=== PATIENT | female | born 2000 | race Two or more races ===

== ENCOUNTER 2024-12-25 22:29 | Emergency (ER) | payer MEDICAID ==
[~2024-12-25] VITALS: Ht 165.1 cm; Wt 91.4 kg
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
[2024-12-26] MEDS ORDERED: CYCL-837 PO (00:38)
[2024-12-26] MEDS ORDERED: ACET500T58 PO (00:38)
[2024-12-26 00:52] LABS: Hematocrit 41.5 % (36.0-46.0); Hemoglobin 14.3 g/dL (12.2-16.2); Mean Corpuscular Hemoglobin 30.5 pg (28.0-32.0); Mean Corpuscular Volume 88.2 fL (80.0-100.0); Nucleated Red Blood Cells % 0.1 %
[2024-12-26] MEDS: ONDANSETRON ODT 4 MG TAB PO ONE (00:52)
[2024-12-26] MEDS: ACETAMINOPHEN/CODEINE#3 (300/30mg) TAB PO ONE (00:52)
[2024-12-26] MEDS: IOHEXOL 300 MG/ML 100ML BOTTLE IJ ONE (00:52)
--- NOTE | 2024-12-26 01:13 | DVH ---
MEDICAL RECORDS NUMBER: [id number] PROCEDURE: XY SPINE THORACIC 2VIEW Date: 12/26/2024 12:27 AM HISTORY: thoracic back pain COMPARISON: None FINDINGS: Alignment is maintained. Anterior vertebral body heights are maintained. No fracture dislocation or other abnormality is seen. IMPRESSION: 1. No acute process is seen. Note: Nondisplaced or minimally displaced fractures may be present but not evident. If clinical concern persists, CT of the spine is recommended as a more sensitive evaluation for fracture.
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
--- NOTE | 2024-12-26 01:15 | DVH ---
MEDICAL RECORDS NUMBER: [id number] PROCEDURE: CT CERVICAL WITHOUT CONTRAST Date: 12/26/2024 12:23 AM HISTORY: neck pain Contrast: None COMPARISON: None RADIATION DOSE INFORMATION: Automated exposure control dose reduction techniques were used. TECHNIQUE: Multiple contiguous axial sections of cervical spine were obtained without contrast. Sagittal and coronal reconstructions were also performed. FINDINGS: Alignment is maintained. Anterior vertebral body heights are maintained. Prevertebral soft tissues appear unremarkable. No fracture is seen. IMPRESSION: 1. No abnormality is seen.
[2024-12-26 01:16] LABS: INR 0.98 (0.9-1.15); Partial Thromboplastin Time 27.6 SEC (24.5-34.5); Prothrombin Time 10.4 sec (9.3-11.8)
[2024-12-26 01:18] LABS: Alkaline Phosphatase 95 U/L (46-116); Anion Gap 11 (5-15); Calcium 9.5 mg/dL (8.7-10.4); Carbon Dioxide 25 mmol/L (20-31); Chloride 107 mmol/L (98-107); Glucose 101 mg/dL (74-106); Potassium 3.6 mmol/L (3.5-5.1); Sodium 143 mmol/L (136-145)
[2024-12-26 01:19] LABS: Albumin 4.7 g/dL (3.2-4.8); BUN/Creatinine Ratio 10.9 (10.0-20.0); Bilirubin, Total 0.5 mg/dL (0.2-1.0)
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
--- NOTE | 2024-12-26 01:20 | DVH ---
MEDICAL RECORDS NUMBER: [id number] PROCEDURE: XY LUMBAR SPINE 3 VIEW Date: 12/26/2024 12:27 AM HISTORY: lumbar back pain COMPARISON: None FINDINGS: Alignment is maintained. Anterior vertebral body heights are maintained. No fracture dislocation or other abnormality is seen. IMPRESSION: 1. No acute process is seen. Note: Nondisplaced or minimally displaced fractures may be present but not evident. If clinical concern persists, CT of the spine is recommended as a more sensitive evaluation for fracture.
[2024-12-26 01:25] LABS: Alanine Aminotransferase 57 U/L (7-40); Blood Urea Nitrogen 7 mg/dL (9-23); Total Protein 8.2 g/dL (5.7-8.2)
[2024-12-26] MEDS: CYCLOBENZAPRINE HCL 10 MG TAB PO ONE (02:08)
[2024-12-26 02:27] LABS: Urine Budding Yeast OCCASIONAL /hpf (None Seen); Urine Protein, UAD TRACE (Negative)
[2024-12-26 02:30] VITALS: BP 105/71; PULSE 92; RESP 18; TEMP 98.1; O2SAT 100
== END 2024-12-26 02:40 | disposition home or self-care (01) ==
LOC: EDBD 22:29 → ER 22:29
DX: S29.012A Strain of muscle and tendon of back wall of thorax, initial encounter (principal); S39.012A Strain of muscle, fascia and tendon of lower back, initial encounter; S30.811A Abrasion of abdominal wall, initial encounter; S09.90XA Unspecified injury of head, initial encounter; Z86.2 Personal history of diseases of the blood and blood-forming organs and certain disorders involving the immune mechanism; W22.8XXA Striking against or struck by other objects, initial encounter; Y93.89 Activity, other specified; Y92.410 Unspecified street and highway as the place of occurrence of the external cause; Y99.8 Other external cause status
CPT/HCPCS: 36415; 70450; 72070; 72100; 72125; 74177; 80053; 81001; 85025; 85610; 85730; 99285; Q0162; Q9967